=== PATIENT | female | born 1990 | race African-American/Black ===

== ENCOUNTER 2018-11-14 20:24 | Emergency (ER) | payer BC ==
[~2018-11-14] VITALS: Ht 167.6 cm; Wt 89.8 kg
[2018-11-14 20:35] VITALS: BP 135/93
--- NOTE | 2018-11-14 21:04 | PHYS DOC ---
Text Text Patient instructed to follow-up with PCP as needed General Chief Complaint: UPPER EXTREMITY INJURY Stated Complaint: WRIST BURN Time Seen by MD: 20:42 Source: patient Exam Limitations: no limitations History of Present Illness Initial Comments Patient presents with reported burn to left wrist. Patient has a less than 5 mm additional skin abrasion which she states is a burn from and will watch. Patient has been treating with Neosporin. She is requesting a note for consumer related purposes. No other symptoms or complaints Severity: mild Pain/Injury Location: left wrist Method of Injury: unknown Past Medical History Medical History: no pertinent history Review of Systems Constitutional: no symptoms reported EENTM: no symptoms reported Respiratory: no symptoms reported Cardiovascular: no symptoms reported Gastrointestinal: no symptoms reported Genitourinary: no symptoms reported Musculoskeletal: no symptoms reported Skin: see HPI Psychiatric/Neurological: no symptoms reported All Other Systems: Reviewed and Negative Physical Exam General Appearance: WD/WN HEENT: PERRL/EOMI Neck: normal inspection Comments Patient with a less than 5 mm superficial skin abrasion over the dorsum of left wrist. No infection. CLARK STEPHENSON DO Nov 14, 2018 21:04
== END 2018-11-14 21:00 | disposition home or self-care (01) ==
LOC: ER 20:24
DX: S60.812A Abrasion of left wrist, initial encounter (principal); T23.072A Burn of unspecified degree of left wrist, initial encounter; W86.1XXA Exposure to industrial wiring, appliances and electrical machinery, initial encounter; Y93.89 Activity, other specified; Y92.89 Other specified places as the place of occurrence of the external cause; Y99.8 Other external cause status
CPT/HCPCS: 99281